=== PATIENT | male | born 1970 | race Caucasian/White ===

== ENCOUNTER 2016-10-31 21:05 | Inpatient (IN) | payer OTHER ==
[~2016-10-31] VITALS: Ht 193 cm; Wt 111.1 kg
--- NOTE | 2016-10-31 21:20 | NUR ---
TRIAGE; PT TO ED FOR CHEST TIGHTNESS. STATES HE FELT IT WHEN HE WAS PLAYING THE DRUMS EARLIER. STATES PAIN IS ACROSS HIS CHEST. DENIES ANY PAIN WITH DEEP INSPIRATION OR ANY PALPATION. PT STATES HE DOES HAVE A HX OF ANXIETY, BUT DOES NOT FEEL THE SAME.
--- NOTE | 2016-10-31 21:33 | NUR ---
RECIEVED TO ROOM 7. PT ATTACHED TO MONITOR AND IS IN SINUS RHYTHM WITH RATE 95. PLACED ON 2 LITERS NC O2 A PRECAUTION. PT DENIES ANY CP OR SOB AT PRESENT FOR IS FEELING ANXIOUS ABOUT WHAT MIGHT BE WRONG WITH HIM. IV IN PLACE. FAMILY AT BEDSIDE.
[2016-10-31] MEDS ORDERED: SERTRALINE HCL100 MG PO (21:39)
[2016-10-31] MEDS ORDERED: METFORMIN HCL500 M3 PO (21:39)
[2016-10-31] MEDS ORDERED: ALPRAZOLAM0.5 M4 (21:40)
[2016-10-31 21:44] LABS: ABSOLUTE BASOPHIL COUNT 0.1 /CUMM (0.0-0.2); ABSOLUTE EOSINOPHIL COUNT 0.2 /CUMM (0.0-0.7); ABSOLUTE GRANULOCYTE CT 9.7 /CUMM (1.4-6.5); ABSOLUTE MONOCYTE COUNT 0.9 /CUMM (0.10-0.60); EOSINOPHIL % 1.6 % (0-5); GRANULOCYTE % 69.4 % (42.2-75.2); HEMATOCRIT 49.4 % (42-52); MEAN CORPUSCULAR HGB 31.3 PG (27.0-31.0); MEAN CORPUSCULAR HGB CONC 33.8 G/DL (33.0-37.0); MEAN CORPUSCULAR VOLUME 92.7 FL (80.0-94.0); MEAN PLATELET VOLUME 8.7 FL (7.4-10.4); PLATELET COUNT 188 /CUMM (130-400); RBC DISTRIBUTION WIDTH 12.7 % (11.5-14.5); RED BLOOD CELL CT 5.33 /CUMM (4.70-6.10)
--- NOTE | 2016-10-31 21:48 | NUR ---
DR BOLAÑOS AND STUDENT AT BEDSIDE
--- NOTE | 2016-10-31 21:55 | NUR ---
XRAY NOTIFIED PT IS READY FOR PORTABLE XRAY, STUDENT EVAL IS COMPLETE
--- NOTE | 2016-10-31 21:57 | NUR ---
DR BOLAÑOS AT BEDSIDE
--- NOTE | 2016-10-31 22:02 | NUR ---
PCXR AT BEDSIDE
--- NOTE | 2016-10-31 22:09 | ED CARDIAC/CP/PALPITATIONS ---
History of Present Illness General Chief Complaint: Chest Pain Stated Complaint: CHEST PAIN Source: patient, friend, Epic Exam Limitations: no limitations Vital Signs & Intake/Output Vital Signs & Intake/Output Vital Signs Date Time Temp Pulse Resp B/P Pulse O2 O2 Flow FiO2 Ox Delivery Rate 11/01 0628 88 20 158/90 10/31 2343 96.0 80 16 140/70 99 Nasal 2.0L Cannula 10/31 2136 99 Nasal 2.0L Cannula 10/31 2132 172/96 10/31 2132 178/103 10/31 2121 96.9 88 18 99 Room Air Allergies Coded Allergies: No Known Allergies (10/31/16) Reconcile Medications Alprazolam 0.5 MG TABLET ANXIETY (Reported) Heparin Sodium,Porcine/D5w (Heparin-D5w 25,000 Unit/250 Ml) 25,000 UNIT/250 ML ( 100 UNIT/ML) IV.SOLN 25,000 UNITS IV ONCE ANTI-COAGULATION Metformin HCl 500 MG TABLET 1 TAB PO BID DIABETES (Reported) Sertraline HCl 100 MG TABLET 1 TAB PO DAILY ANXIETY (Reported) Triage Note: TRIAGE; PT TO ED FOR CHEST TIGHTNESS. STATES HE FELT IT WHEN HE WAS PLAYING THE [employer] EARLIER. STATES PAIN IS ACROSS HIS CHEST. DENIES ANY PAIN WITH DEEP INSPIRATION OR ANY PALPATION. PT STATES HE DOES HAVE A HX OF ANXIETY, BUT DOES NOT FEEL THE SAME. Triage Nurses Notes Reviewed? 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 3 hours prior to admission while drumming patient reports developing central chest pain described as mild to moderate aching constant nonradiating. He denies fever chills nausea vomiting diarrhea abdominal pain shortness breath headache dysuria rash bleeding. Past History Travel History Traveled to [place] past 21 day No Medical History Any Pertinent Medical History? see below for history Psychiatric: anxiety, depression Endocrine: diabetes Surgical History Surgical History: non-contributory Psychosocial History What is your primary language Trinidadian Tobacco Use: Never used Family History Hx Contributory? Yes Review of Systems Review of Systems Constitutional: Reports: no symptoms. EENTM: Reports: no symptoms. Respiratory: Reports: no symptoms. Cardiovascular: Reports: see HPI, chest pain. GI: Reports: no symptoms. Genitourinary: Reports: no symptoms. Musculoskeletal: Reports: no symptoms. Skin: Reports: no symptoms. Neurological/Psychological: Reports: no symptoms. Hematologic/Endocrine: Reports: no symptoms. Immunologic/Allergic: Reports: no symptoms. All Other Systems: Reviewed and Negative Physical Exam Physical Exam General Appearance: well developed/nourished, alert, awake, anxious, mild distress, obese Head: atraumatic, normal appearance Eyes: Bilateral: normal appearance, PERRL, EOMI. Ears, Nose, Throat: normal pharynx, normal ENT inspection Neck: normal inspection, supple, full range of motion, no midline tenderness Respiratory: normal breath sounds, chest non-tender, no respiratory distress, quiet respiration, lungs clear Cardiovascular: regular rate/rhythm, normal peripheral pulses, norml femoral pulses equa Peripheral Pulses: 4+ carotid (R), 4+ carotid (L) Gastrointestinal: normal bowel sounds, soft, non-tender, no organomegaly Back: normal inspection, normal range of motion, no vertebral tenderness Extremities: normal inspection, normal capillary refill, normal range of motion, no edema Neurologic/Psych: no motor/sensory deficits, awake, alert, oriented x 3, normal gait, normal mood/affect, vp production II-XII nml as tested Reflexes: 2+: bicep (R), bicep (L). Skin: intact, normal color, warm/dry Lymphatic: no anterior cervical eli Core Measures ACS in differential dx? Yes ASA ordered for poss ACS? Yes-ordered Severe Sepsis Present: No Septic Shock Present: No Progress Differential Diagnosis: AMI, hyperkalemia, hyperthyroid, myocarditis, pericarditis Plan of Care: Orders Procedure Date/time Status Nothing by Mouth 11/01 B Active PARTIAL THROMBOPLASTIN TIME 11/01 1345 Active EKG 11/01 1030 Active TROPONIN LEVEL 11/01 0800 Active EKG 11/01 0800 Active TROPONIN LEVEL 11/01 0600 Complete MAGNESIUM 11/01 0600 Complete GLYCOSYLATED HGB 11/01 0600 Active CBC WITHOUT DIFFERENTIAL 11/01 06 Complete BASIC ELECTROLYTES PLUS BUN&CR 11/01 06 Complete EKG 11/01 0600 Active Transfer patient to 11/01 0532 Active Teach/Educate 11/01 013 Active Nutritional Intake, Monitor 11/01 0135 Active Isolation 11/01 0135 Active Intake & Output 11/01 134 Active Patient Care Conference 11/015 Active Activity/Ambulation 11/01 0135 Active Pathway - chart 11/01 0034 Active Patient Data 11/01 0034 Active ECHOCARDIOGRAM 11/01 0034 Active Admit to inpatient 11/01 0000 Active House Staff 11/01 UNK Active Lab Add-on Test 11/01 UNK Active VTE Mechanical Prophylaxis 11/01 UNK Active Vital Signs 11/01 UNK Active Telemetry/[employer] Architect 11/01 UNK Active FingerStick- Glucose 11/01 UNK Active Patient Data 10/31 2357 Active Patient Data 10/31 2355 Active OXYGEN SETUP (GEN) 10/31 2208 Active Saline Lock 10/31 2208 Active Vital Signs 10/31 2208 Complete Activity/Ambulation 10/31 2208 Active Code Status 10/31 2208 Active Intake & Output 10/31 2136 Active Add-on Test (ER Only) 10/31 2134 Active THYROID STIMULATING HORMONE 10/31 2129 Complete FREE T4 10/31 2129 Complete WESTERGREN SED RATE 10/31 2129 Complete C-REACTIVE PROTEIN 10/31 2129 Complete TROPONIN LEVEL 10/31 2117 Complete MAGNESIUM 10/31 2117 Complete COMPREHENSIVE METABOLIC PANEL 10/31 2117 Complete CHOLESTEROL 10/31 2117 Complete CBC WITHOUT DIFFERENTIAL 10/31 2117 Complete EKG 10/31 2107 Active Current Medications Sig/Reynold Start time Last Medication Dose Stop Time Status Admin Sertraline HCl 100 MG DAILY 11/02 1000 AC (Zoloft) Aspirin 81 MG DAILY 11/01 1000 AC (Aspirin) Insulin Aspart 0 TIDAC 11/01 0800 CAN (NovoLOG) Omeprazole 40 MG DAILY AC 11/01 0700 AC (Prilosec) Heparin Sodium 5,000 UNIT Q8 11/01 0600 CAN (Porcine) Insulin Human Regular 0 Q6 11/01 0600 AC (Novolin R) Acetaminophen 650 MG Q6P PRN 11/01 0045 AC (Tylenol) Laboratory Tests 11/01/16 0430: Hemoglobin A1c Pending 11/01/16 0430: Anion Gap 8, Estimated GFR > 60, BUN/Creatinine Ratio 21.3, Magnesium 2.2, Troponin I 44.50 *H, CBC w Diff NO MAN DIFF REQ, RBC 4.96, MCV 91.9, MCH 30.8, RDW 13.0, MPV 8.7, Gran % 63.5, Lymphocytes % 25.9, Monocytes % 7.4, Eosinophils % 2.5, Basophils % 0.7, Absolute Granulocytes 8.9 H, Absolute Lymphocytes 3.6 H, Absolute Monocytes 1.0 H, Absolute Eosinophils 0.4, Absolute Basophils 0.1, PUBS MCHC 33.5 10/31/16 2130: Anion Gap 11, Estimated GFR > 60, BUN/Creatinine Ratio 17.5, Glucose 157 H, Calcium 9.7, Magnesium 1.9, Total Bilirubin 0.4, AST 25, ALT 39, Alkaline Phosphatase 102, Troponin I 0.01, C-Reactive Prot, Quant 1.9 H, Total Protein 7.3, Albumin 4.4, Globulin 2.9, Albumin/Globulin Ratio 1.5, Cholesterol 219 H, TSH 1.770, Free T4 1.19, CBC w Diff NO MAN DIFF REQ, RBC 5.33, MCV 92.7, MCH 31.3 H, RDW 12.7, MPV 8.7, Gran % 69.4, Lymphocytes % 21.6, Monocytes % 6.4, Eosinophils % 1.6, Basophils % 1.0, Absolute Granulocytes 9.7 H, Absolute Lymphocytes 3.0, Absolute Monocytes 0.9 H, Absolute Eosinophils 0.2, Absolute Basophils 0.1, PUBS MCHC 33.8, ESR Westergren 9 Diagnostic Imaging: Viewed by Me: Radiology Read. Discussed w/RAD: Radiology Read. CXR Impression: no acute abnormality, no infiltrates, normal size heart, normal mediastinum Initial ED EKG: normal axis, normal intervals, normal sinus rhythm, ST elevation (diffusely vs pr depression) Rhythm Strip: normal sinus rhythm Departure Departure Disposition: STILL A PATIENT Condition: Stable Clinical Impression Primary Impression: Pericarditis Qualifiers: Pericarditis type: unspecified type Chronicity: acute Qualified Code: I30.9 - Acute pericarditis, unspecified Secondary Impressions: Chest pain Qualifiers: Chest pain type: unspecified Qualified Code: R07.9 - Chest pain, unspecified Referrals: PATIENT HAS NO PRIMARY CARE DR Departure Forms: Customer Survey General Discharge Information Prescriptions: Current Visit Scripts Heparin Sodium,Porcine/D5w (Heparin-D5w 25,000 Unit/250 Ml) 25,000 UNITS IV ONCE #1 Admission Note Spoke With: CANDY BULL,KULDEEP Cunningham Documentation of Exam: Documentation of any treatments & extenuating circumstances including Concerns Regarding Discharge (functional status, medication knowledge or non-compliance, living conditions, etc.) that warrant an admission rather than observation: Cardiac monitoring serial lab exam serial EKG cardiology evaluation echocardiogram medication adjustment continuing care discharge planning Critical Care Note Critical Care Note Critical Care Time: non-applicable
--- NOTE | 2016-10-31 22:19 | NUR ---
MEDICATED ORDERED, AWARE WAITING ON RESULTS/PLAN, AWARE TO REMAIN NPO UNTIL DX/DISPO ESTABLISHED, NO COMPLAINTS AT THIS TIME. STILL WITH CHEST PAIN 01/15.
--- NOTE | 2016-10-31 22:32 | RADIOLOGY REPORT ---
EXAMINATION: XR PORTABLE CHEST CLINICAL INFORMATION: Chest pain. COMPARISON: None. TECHNIQUE: Portable AP view of the chest was obtained. FINDINGS: The lungs are hypoinflated but otherwise clear without focal airspace consolidation. No pleural effusions or pneumothoraces are identified. Cardiomediastinal contours are within normal limits. Soft tissues are unremarkable. No acute osseous abnormality is identified. IMPRESSION: No acute pulmonary process.
--- NOTE | 2016-10-31 23:44 | NUR ---
PT REPORTS ANXIETY IS BETTER, PAIN "TOOK THE EDGE OFF," DR BOLAÑOS AT BEDSIDE TO RE-EVAL, PT AWARE INITIAL TROP NEG.
--- NOTE | 2016-11-01 00:16 | History & Physical ---
MERRICK BULL,[facility] 11/01/16 0016: General Information and HPI MD Statement: I have seen and personally examined WILL PINK JR and documented this H&P. The patient is a 46 year old M who presented with a patient stated chief complaint of chest pain. Source of Information: patient, family, old records Exam Limitations: no limitations History of Present Illness: Mr Pink is a 46-year-old gentleman with past medical history of type 2 diabetes, anxiety and depression who presented to the emergency department on 10/31/2016 complaining of chest pain and chest discomfort. Patient states that approximately 5 days ago he had symptoms of a URI. He reports a cough and congestion although denies myalgia (he also reports that his partner had similar symptoms or a URI).This morning the patient woke up feeling generalized malaise and weakness. In the early evening after playing drums for approximately 1.5 hours he developed chest tightness. Patient reports that this was rated at a 5/10 in severity. Described as pressure like pain. Located sub sternally. Patient states that his pain was not related to inspiration and variation in position did not make the pain better or worse. Pain did not radiate to his upper extremities. The patient previously had a similar episode of chest discomfort approximately 10 days ago after using a snowblower following the heavy snowstorm. He endorses that this pain subsequently resovled. Patient states that failure to have a resolution to his symptoms prompted him to come to the emergency department. The patient did not get a flu shot this year. Allergies/Medications Allergies: Coded Allergies: No Known Allergies (10/31/16) Compliance With Home Meds: UNKNOWN Past History Travel History Traveled to [place] past 21 day No Medical History Psychiatric: anxiety, depression Endocrine: diabetes Surgical History Surgical History: none Past Family/Social History Family History Relations & Conditions if any MOTHER, ; Cause: Breast cancer. FATHER (CAD. [place] mid 40'sDM). Psychosocial History Where do you live? Home Services at Home: None Primary Language: Panamanian Smoking Status: Current Some Day Smoker ETOH Use: occasional use Illicit Drug Use: denies illicit drug use Functional Ability ADLs Independent: dressing, eating, toileting, bathing. Ambulation: independent IADLs Independent: shopping, housework, finances, food prep, telephone, transportation , medication admin. Employment History Employment Employed Review of Systems Review of Systems Cardiovascular: Reports: chest pain. Denies: edema, orthopena, palpitations, peripheral edema. Respiratory: Reports: cough. Denies: see HPI, hemoptysis, orthopnea, short of breath, sputum production, stridor. GI: Denies: abdominal pain, bloating, constipation, diarrhea, distention. Genitourinary: Denies: discharge, dysuria, frequency, hematuria, hesitation. Musculoskeletal: Denies: back pain, gout, joint pain, joint swelling. Skin: Denies: cysts, change in skin color, change in hair/nails, dryness. Neurological/Psychological: Denies: anxiety, ataxia, cognitive dysfunction, confusion, depressed. Hematologic/Endocrine: Denies: bruising. Exam & Diagnostic Data Last 24 Hrs of Vital Signs/I&O Vital Signs Date Time Temp Pulse Resp B/P Pulse O2 O2 Flow FiO2 Ox Delivery Rate 10/31 2342 96.0 80 16 140/70 99 Nasal 2.0L Cannula 10/31 2136 99 Nasal 2.0L Cannula 10/31 2132 172/96 10/31 2132 178/103 10/31 2121 96.9 88 18 99 Room Air Physical Exam General Appearance Alert, Oriented X3, Cooperative HEENT Mucous Membr. moist/pink Cardiovascular Normal S1, Normal S2, No Murmurs Lungs Clear to Auscultation Abdomen Normal Bowel Sounds, Soft, No Tenderness Neurological Normal Speech, Normal Tone, Sensation Intact Extremities No Edema Vascular Normal Pulses Last 24 Hrs of Labs/Ivan: Laboratory Tests 10/31/162129: Anion Gap 11, Estimated GFR > 60, BUN/Creatinine Ratio 17.5, Glucose 157 H, Calcium 9.7, Magnesium 1.9, Total Bilirubin 0.4, AST 25, ALT 39, Alkaline Phosphatase 102, Troponin I 0.01, C-Reactive Prot, Quant 1.9 H, Total Protein 7.3, Albumin 4.4, Globulin 2.9, Albumin/Globulin Ratio 1.5, Cholesterol 219 H, CBC w Diff NO MAN DIFF REQ, RBC 5.33, MCV 92.7, MCH 31.3 H, RDW 12.7, MPV 8.7, Gran % 69.4, Lymphocytes % 21.6, Monocytes % 6.4, Eosinophils % 1.6, Basophils % 1.0, Absolute Granulocytes 9.7 H, Absolute Lymphocytes 3.0, Absolute Monocytes 0.9 H, Absolute Eosinophils 0.2, Absolute Basophils 0.1, PUBS MCHC 33.8, ESR Westergren 9 Diagnostic Data EKG Results Rate 89. ST Elevation II, III, aVF CXR Results IMPRESSION: No acute pulmonary process. DICTATED BY: SARAH BELLO MD Assessment/Plan Assessment: This is a 46-year-old gentleman with no cardiac history who presented to the emergency department complaining of chest discomfort. #Chest pain Likely related to pericarditis due to recent URI. Coxsackie versus adenovirus versus influenza Admit patient to telemetry for closer monitoring. Trend troponins and EKG every 6 hours. Initial troponin done at the ED: 0.01 Echo in a.m. Cardiology consult with Dr. Haley in a.m. If echocardiogram is inconclusive consider an MRI looking for pericardial thickening and inflammation. For symptomatic relief Ibuprofen 800 mg. #History of diabetes. Begin the patient on sliding scale 3 times a day at bedtime. Hemoglobin A1c for long-term glycemic control. Maintain blood sugars below 150. If sugars remain uncontrollable consider endocrinology consult. #History of anxiety. Continue alprazolam. #History of depression Continue sertraline. #Diet Consistent carbohydrate diet #Code Full code #DVT prophylaxis ALPS As Ranked By This Provider Problem List: 1. Anxiety 2. Diabetes 3. Depression 4. Pericarditis Qualifiers Pericarditis type: unspecified type Chronicity: acute Qualified Code: I30.9 - Acute pericarditis, unspecified Core Measures/Miscellaneous Acute Coronary Syndrome ACS Diagnosis: No Cerebrovascular Accident CVA/TIA Diagnosis: No Congestive Heart Failure CHF Diagnosis: No Venous Thromboembolism VTE Risk Factors: Age > 40 VTE Prophylaxis Ordered Inpt: Mechanical (ALPS[facility]TEDS) [facility] d/t: No contraindications No VTE Pharm Prophylaxis d/t: No contraindications VTE Diagnosis: No VTE Type: NONE VTE Confirmed by (Test): NONE Severe Sepsis Severe Sepsis Present: No Septic Shock Septic Shock Present: No Miscellaneous Documentation Primary Care Physician: ROSAURA DE LA CRUZ MD Patient sees these Specialists NA Level of Patient Care: Telemetry GARRICK SOTO MD 11/01/16 0028: Review of Systems Review of Systems Constitutional: Reports: see HPI. Exam & Diagnostic Data Last 24 Hrs of Vital Signs/I&O Vital Signs Date Time Temp Pulse Resp B/P Pulse O2 O2 Flow FiO2 Ox Delivery Rate 10/31 2342 96.0 80 16 140/70 99 Nasal 2.0L Cannula 10/31 2136 99 Nasal 2.0L Cannula 10/31 2132 172/96 10/31 2132 178/103 10/31 2121 96.9 88 18 99 Room Air Intake & Output 11/01 0800 11/01 0000 10/31 1600 Intake Total Output Total Balance Patient 245 lb Weight Core Measures/Miscellaneous Miscellaneous Documentation Attending Case Discussed With: CANDY BULL,KULDEEP Cunningham Resident Review Statement Resident Statement: examined this patient, discussed with internet marketing consultant Other Findings: This is a 46-year-old gentleman with a past history only significant for one pack per day cigarette use, anxiety, depression, diabetes presents to the emergency room with a chief complaint of chest pain since this evening. Patient states that last week he was using a snowblower and experienced some left chest wall pain which was thought to be musculoskeletal with self alleviated. Subsequently he developed viral URI-like symptoms for the last 4-5 days. Today he played the drums for about an hour after he stopped playing the drums he noticed pain over the sternum which was pressure-like. Not related to inspiration or expiration, non-positional. He presented to the emergency room for same. While in the ER he received a full aspirin, morphine and Toradol with modest alleviation of his symptoms. At present is resting comfortably in his hospital bed without any complaints. Past medical history- anxiety, depression, diabetes Family history- mother of breast cancer, father is alive and has an extensive cardiac history recurrent myocardial infarctions Social history- current everyday one pack per day smoker, social alcohol use, no illicit drug use, is a touch up painter hand by trade Physical exam Vital signs are stable Lung exam is clear to auscultation bilaterally Cardiovascular exam reveals normal rate and rhythm, normal S1 and S2, no murmurs , no friction rub, chest pain not reproducible when palpated over chest wall/ sternum Family exam reveals normal bowel sounds, no tenderness or organomegaly Neuro exam is benign Extremity exam is benign EKG- rate 89, WA 136, QRS 90, QTC 428; sinus rhythm, ST elevations in leads 2, 3 , aVF, V4 V5 and V6; WA segment depressions in the same leads noted Chest x-ray shows no acute pulmonary process His BEP is benign, CBC reveals a white count of 14,000 without a left shift; troponin is negative, CRP is 1.9, ESR is pending Assessment- 1. Acute pericarditis, likely secondary to viral URI 2. Musculoskeletal chest wall pain likely secondary to acute pericarditis 3. History of depression 4. History of anxiety 5. History of diabetes mellitus 6. Nicotine dependence Plan- Telemetry admission Vitals per protocol Trend troponin and EKG Ibuprofen 800 every 8 protonix, 40 twice a day Echocardiogram Cardiology consultation in the morning Accu-Cheks, diabetic diet, low-dose insulin sliding scale Continue all other home meds No nicotine patch while in the hospital, given the fact that he had some chest discomfort Pain pathway DVT prophylaxis with subcutaneous heparin Full code CANDY BULL,KULDEEP Cunningham 11/01/16 0743: General Information and HPI Allergies/Medications Home Med list Alprazolam 0.5 MG TABLET ANXIETY (Reported) Aspirin (Aspirin*) 81 MG TAB.CHEW 81 MG PO DAILY heart health Atorvastatin Calcium 40 MG TABLET 1 TAB PO DAILY HLD Heparin Sodium,Porcine/D5w (Heparin-D5w 25,000 Unit/250 Ml) 25,000 UNIT/250 ML ( 100 UNIT/ML) IV.SOLN 25,000 UNITS IV ONCE ANTI-COAGULATION Metformin HCl 500 MG TABLET 1 TAB PO BID DIABETES (Reported) Metoprolol Tartrate 25 MG TABLET 1 TAB PO BID htn Sertraline HCl 100 MG TABLET 1 TAB PO DAILY ANXIETY (Reported) Attending MD Review Statement Attending Statement Attending MD Statement: examined this patient, discuss w/resident/PA/REAL ESTATE VALUER, agreed w/resident/PA/REAL ESTATE VALUER, discussed with family, reviewed EMR data (avail), discussed with nursing, discussed with case mgmt, reviewed images, amended to note Attending Assessment/Plan: Mr. Will Pink is a 46-year-old male with history of diabetes mellitus, long-standing tobacco use, anxiety, and positive family history for coronary artery disease (father experienced a myocardial infarction in his late 40s, early 50s) and recent upper respiratory infection symptoms who presented to the ED with complaints of substernal chest "discomfort" of 5-10 intensity, without radiation, worsening or improvement with change in position and/or respiration, or associated symptoms, and some mild diaphoresis that began while he was playing drums at approximately 7:30 p.m. last evening. When his symptoms persisted he drove himself to the ED where he received oxygen, full dose aspirin, Toradol, and morphine sulfate and felt improved. An ECG was performed that was reported to reveal diffuse ST segment elevation with WA segment depression. Initial blood work also revealed an elevated WBC count and normal troponin I. When I was contacted by the ED physician (Aaron Jimenez M.D.) the working diagnosis was pericarditis given his recent URI, ECG changes, elevated WBC count , normal troponin, discomfort resolution with Tordal, etc. Of note is the fact that Mr. Pink was asked discomfort free in the night and remains remains chest discomfort free. PMH: Diabetes mellitus, long-standing tobacco use, anxiety disorder. FH/SH: Father had a myocardial infarction in his late 40s, mother was diabetic, had breast CA, and was a victim of SCD in her late 50s-early 60s. The patient smokes one and a half packs of tobacco a day for 25 years. Social EtOH. ROS: A 14 point system review was obtained and was noncontributory, other than as above. PE: Well-developed, overweight middle-aged male in no acute distress with nasal oxygen in place. Vital signs: See above. HEENT: Normocephalic, atraumatic, EOMI, moist mucous membranes. Neck: No JVD, no bruits. Lungs: Clear to auscultation bilaterally. Heart: S1, S2 with no murmur, gallop, or rub appreciated. PMI fifth ICS at MCL. Abdomen: Soft, nontender, positive bowel sounds. Extremities: No edema. Peripheral pulses: Symmetrical, intact. Studies: ECG (11/01/2016 at 8:11 a.m.) sinus rhythm, borderline inferolateral Q waves, nonspecific ST-T wave abnormalities. CXR (10/31/2016) no acute cardiopulmonary process. Troponin I: Set # 1= 0.01 ng/ml Set # 2= 44.50 ng/ml Impression: Acute coronary syndrome vs. myopericardial inflammation in this 46- year-old male with a history of obesity, diabetes mellitus, long- standing tobacco use, family history for coronary artery disease, etc. Recommendations: * ICU admission, follow-up troponins, follow-up electrocardiogram. * IV anticoagulation, antiplatelets (aspirin, clopidogrel 600 mg total load), statin, THANH inhibitor, beta mariposa, etc. * Continue nothing by mouth in anticipation of cardiac catheterization. Case discussed with our interventionalist (Kody Franks M.D., PhD) and the plan will be for transfer to [facility] with him as accepting physician for cardiac catheterization and intervention as needed. * Schedule for echocardiogram to assess left ventricular systolic/diastolic function, right ventricular function, estimated PA pressure, etc. * Prophylaxis for deep venous thrombosis being addressed by IV anticoagulation for his ACS. Further recommendations will follow.
--- NOTE | 2016-11-01 00:21 | NUR ---
[facility]OP[facility] STAFF HERE TO EVAL PT TO BE ADMITTED TO TELE
--- NOTE | 2016-11-01 00:40 | NUR ---
EATING BOXED LUNCH DENIES ANY PAIN AT THIS TIME.
--- NOTE | 2016-11-01 01:04 | NUR ---
REPORT CALLED TO MANJINDER EMANUEL
--- NOTE | 2016-11-01 02:26 | NUR ---
AT 0211 PATIENT HAD A 4 BEAT RUN V-TACH. PATIENT DENIES CP, RESTING COMFORTABLY BP 130/[address] SIN NOTIFIED. EKG AND TROPONIN DUE TO BE DRAWN AT 0600. NO FURTHER INTERVENTIONS AT THIS TIME. WILL CONTINUE TO MONITOR.
--- NOTE | 2016-11-01 02:27 | NUR ---
AT 0220 PATIENT HAD 3 BEAT RUN OF V-TACH. STRIP PLACED IN CHART. DR. SIN NOTIFIED. NO INTERVENTIONS AT THIS TIME. WILL CONTINUE TO MONITOR.
[2016-11-01 04:58] LABS: ABSOLUTE BASOPHIL COUNT 0.1 /CUMM (0.0-0.2); ABSOLUTE EOSINOPHIL COUNT 0.4 /CUMM (0.0-0.7); ABSOLUTE GRANULOCYTE CT 8.9 /CUMM (1.4-6.5); ABSOLUTE LYMPH COUNT 3.6 /CUMM (1.2-3.4); BASOPHIL % 0.7 % (0.0-2.0); EOSINOPHIL % 2.5 % (0-5); GRANULOCYTE % 63.5 % (42.2-75.2); HEMATOCRIT 45.6 % (42-52); MEAN CORPUSCULAR HGB 30.8 PG (27.0-31.0); MEAN CORPUSCULAR HGB CONC 33.5 G/DL (33.0-37.0); MEAN CORPUSCULAR VOLUME 91.9 FL (80.0-94.0); MEAN PLATELET VOLUME 8.7 FL (7.4-10.4); PLATELET COUNT 181 /CUMM (130-400); RED BLOOD CELL CT 4.96 /CUMM (4.70-6.10)
[2016-11-01] MEDS ORDERED: HEPARIN-D525000 UNIT IV (06:04)
--- NOTE | 2016-11-01 06:08 | Event Note ---
Event Note Event Note: After clinical encounter at the ED, patient was admitted to telemetry. The patient continued to beats of V. tach. 2:18 AM had a 3 beat 2:24 AM had a 3 beat. (added a TSH and Free t4) 3:58 AM had a 7 beat. At approximately 4:15 AM resident and myself went to the patient's bedside. He was resting comfortably in bed. A stat EKG was ordered. Morning labs were requested to be drawn earlier instead of 6 AM. Troponin originally ordered for 6 AM was drawn and further showed evidence of increased troponin to 44.50. Water Proofer, Dr. Haley was called. Patient was started on IV heparin as per ACS protocol. 5000 units bolus of heparin was also given. High-dose statin 80 mg ordered. Aspirin 81 mg ordered. Metoprolol 2.5 mg IV ordered. Patient made NPO and switched over to sliding scale insulin. Patient's girlfriend has been informed. Patient transferred to ICU.
--- NOTE | 2016-11-01 06:11 | Discharge Summary ---
Visit Information Visit Dates Admission Date: 11/01/16 Discharge Date: 11/01/16 Hospital Course Course Attending Physician: CANDY BULL,KULDEEP Cunningham Primary Care Physician: ROSAURA DE LA CRUZ MD [facility] Course: Problem list: -Chest pain Acute coronary syndrome vs. myopericardial inflammation. -Nlb-[id number] diabetes mellitus. Hospital course: This is 46-year-old gentleman with a past history of anxiety, depression and diabetes mellitus admitted last night for chest discomfort he experienced while playing the drums. he was given aspirin, Toradol and morphine by the ER physician after which his symptoms had completely alleviated. His chest discomfort was present more so over the sternum, his first troponin was negative and his EKG showed diffuse ST elevations and MD depressions suggestive of pericarditis. He was admitted to the cardiac telemetry floor for suspected pericarditis and was being treated accordingly. His second troponin did come back positive at 44.15 so the patient was transferred to the ICU and was started on heparin drip, he received statin and IV beta mariposa with THANH-I, the patient remained free from any chest pain or discomfort. Patient had episodes of V. tach. Patient received a particular 600 mg total load as 300 mg dose in 2 doses the second one be given before the transfer. after evaluation and discussion with the staff editor, patient will need to be transferred for cardiac catheterization. Patient had strong family history of his father and coronary artery disease before age of 50, also the patient current smoker of one pack per day. Imaging: EXAMINATION: XR PORTABLE CHEST FINDINGS: The lungs are hypoinflated but otherwise clear without focal airspace consolidation. No pleural effusions or pneumothoraces are identified. Cardiomediastinal contours are within normal limits. Soft tissues are unremarkable. No acute osseous abnormality is identified. IMPRESSION: No acute pulmonary process. Allergies: Coded Allergies: No Known Allergies (10/31/16) Disposition Summary Disposition Principal Diagnosis: Acute coronary syndrome vs. myopericardial inflammation Additional Diagnosis: 1. Anxiety 2. Depression 3. DM Discharge Disposition: other general hospital Discharge Instructions General Discharge Information Code Status: Full Code Patient's Diet: NPO Patient's Activity: TOLERATED Follow-Up Instructions/Appts: D/C TO OTHER HOSPITAL FOR CATH Medications at Discharge Discharge Medications: Continue taking these medications: Sertraline HCl (Sertraline HCl) 100 MG TABLET 1 Tablet ORAL DAILY Qty = 30 Metformin HCl (Metformin HCl) 500 MG TABLET 1 Tablet ORAL TWICE DAILY Qty = 60 Alprazolam (Alprazolam) 0.5 MG TABLET Qty = 30 Start taking the following new medications: Aspirin (Aspirin*) 81 MG TAB.CHEW 81 Milligram ORAL DAILY Days = 28 No Refills Heparin Sodium,Porcine/D5w (Heparin-D5w 25,000 Unit/250 Ml) 25,000 UNIT/250 ML ( 100 UNIT/ML) IV.SOLN 25,000 Units INTRAVEN GIVE ONCE Qty = 1 No Refills Metoprolol Tartrate (Metoprolol Tartrate) 25 MG TABLET 1 Tablet ORAL TWICE DAILY Days = 14 No Refills Atorvastatin Calcium (Atorvastatin Calcium) 40 MG TABLET 1 Tablet ORAL DAILY Qty = 30 No Refills Copies To: DOROTHY BULL,ROSAURA Gardiner
[2016-11-01 06:30] VITALS: BP 168/92
[2016-11-01] MEDS ORDERED: ASPIRIN81 M4 PO (07:43)
[2016-11-01] MEDS ORDERED: NITROGLYCERIN0.4 M1 SL (07:43)
[2016-11-01] MEDS ORDERED: METOPROLOL TART25 M1 PO (07:45)
--- NOTE | 2016-11-01 07:47 | Patient Discharge Instructions ---
Discharge Instructions General Discharge Information You were seen/treated for: CHEST PAIN Special Instructions: Please follow-up with your primary care doctor after discharge. Please follow-up with her navy diver after discharge. Diet Continue normal diet: No Recommended Diet: Diabetic, Heart Healthy Activity Full Activity/No Limits: No Activity Self Limited: Yes Acute Coronary Syndrome Inclusion Criteria At DC or during hospital stay patient has or had the following: ACS DIAGNOSIS No Discharge Core Measures Meds if any: Prescribed or Continued at Discharge THANH/ARB if EF <40% No Aspirin Yes Beta-Cinthia Yes Statin Yes Meds if any: NOT Prescribed or Continued at Discharge Congestive Heart Failure Inclusion Criteria At DC or during hospital stay patient has or had the following: CHF DIAGNOSIS No Discharge Core Measures Meds if any: Prescribed or Continued at Discharge Meds if any: NOT Prescribed or Continued at Discharge Cerebrovascular accident Inclusion Criteria At DC or during hospital stay patient has or had the following: CVA/TIA Diagnosis No Discharge Core Measures Meds if any: Prescribed or Continued at Discharge Meds if any: NOT Prescribed or Continued at Discharge Venous thromboembolism Inclusion Criteria VTE Diagnosis No VTE Type NONE VTE Confirmed by (Test) NONE Discharge Core Measures - Per Current guidelines, there needs to be overlap - treatment for the first 5 days of Warfarin therapy. - If discharged on Warfarin prior to 5 days of - overlap therapy, the patient will need to be - assessed for post discharge needs including - *Post discharge parental anticoagulation - *Warfarin and/or parental anticoagulation education - *Follow up date to check INR post discharge At least 5 days overlap therapy as Inpatient No Meds if any: Prescribed or Continued at Discharge Note: Overlap Therapy is Warfarin and Anticoagulant Meds if any: NOT Prescribed or Continued at Discharge
[2016-11-01] MEDS ORDERED: ATORVASTATIN CA40 M1 PO (07:48)
--- NOTE | 2016-11-01 07:53 | NUR ---
AT 0415 PATIENT HAD 7 BEAT RUN OF V-TACH. DR. SIN WAS NOTIFIED. BP 130/80 PATIENT DENIES CP. HEART RATE 74 NSR. EKG AND TROPONIN DRAWN ORDERED.
--- NOTE | 2016-11-01 07:54 | NUR ---
AT [address]30 [address]IN RE[address]ED AT 44.5. DR SOTO NOTIFIED AND HEPARIN DRIP STARTED ORDERED AND PATIENT TRANSFERED TO CRITICAL CARE.
[2016-11-01 08:00] VITALS: BP 168/70
--- NOTE | 2016-11-01 08:19 | NUR ---
0600 ALERT, ORIENTED X3 PATIENT RECEIVED FROM 1N VIA BED, SKIN PINK, WARM AND DRY, MANAGER OF PLANNING SINUS WITHOUT ECTOPY, HEART RATE 85 TO 90/MIN, 2L/MIN O2 VIA NC- O2 SAT AT 99%, BREATHE SOUNDS CLEAR BILATERALLY, ABDOMEN SOFT, +BS, IV HEPARIN DRIP INFUSING AT 9 UNITS/KG/HR (20 ML/HR)- PTT DUE AT 1345 TODAY, PATIENT VERY ANXIOUS OVER TRANSFER INTO [facility]- 1000 XANAX DOSE GIVEN NOW PER DR SIN, PATIENT ORIENTED TO [facility] SURROUNDINGS/ROUTINE, NPO STATUS EXPLAINED, PATIENT ENCOURAGED TO VERBALIZE ANY QUESTIONS/CONCERNS 0630 2.5 MG LOPRESSOR GIVEN SLOWLY IV- HEART RATE MID-70'S/MIN AND SBP 150/ AFTER MED, PATIENT HAS EXPRESSED CONFUSION REGARDING [facility] TRANSFER, CANNOT RECALL WHAT HE WAS TOLD BY MD'S, ALSO HAS EXPRESSED MIDSTERNAL DISCOMFORT- "MUCH LESS THAN EARLIER," NONRADIATING, NOT INCREASED WITH RESPIRATION OR MOVEMENT- MATTI FERNÁNDEZ AND MERRICK IN AT BEDSIDE AND HAVE EXPLAINED AGAIN TO BOTH PATIENT AND GIRLFRIEND AND ENCOURAGED QUESTIONS 0700 PATIENT RESTING QUIETLY, AWAITING DR GUPTA'S VISIT
[2016-11-01 11:45] VITALS: BP 170/90
--- NOTE | 2016-11-01 12:22 | ECHOCARDIOGRAM REPORT ---
WILL PINK Age: 46 : 1970 Gender: M Exam Date: 11/01/2016 08:56 Exam Location: [facility] Ht (in): 73 Wt (lb): 245 BSA: 2.42 BP: 158 / 90 Ordering Physician: RADHA SOTO M Referring Physician: RADHA SOTO MD Technologist: Sarwat Urena [facility] Room Number: 109 Indications: PERICARDIAL CONDITIONS Rhythm: Sinus Technical Quality: Fair FINDINGS Left Ventricle Normal size left ventricle. Borderline concentric left ventricular hypertrophy. No obvious regional wall motion abnormalities. Borderline normal left ventricular ejection fraction estimated at 50-55%. Normal left ventricular diastolic filling pattern for age. Right Ventricle Normal right ventricular size and function. Right Atrium Normal right atrial size. Left Atrium Normal left atrial size. Mitral Valve Mitral valve mildly thickened. No mitral regurgitation. Aortic Valve Aortic valve not well visualized, grossly normal. No aortic valve stenosis or regurgitation. Tricuspid Valve Structurally normal tricuspid valve. No tricuspid regurgitation. Unable to estimate the right ventricular systolic pressure. Pulmonic Valve Pulmonic valve not well visualized. No pulmonic regurgitation. Pericardium No pericardial effusion. Great Vessels Normal size aortic root. CONCLUSIONS Normal size left ventricle. Borderline concentric left ventricular hypertrophy. No obvious regional wall motion abnormalities. Borderline normal left ventricular ejection fraction estimated at 50-55%. Normal left ventricular diastolic filling pattern for age. Normal right ventricular size and function. Normal atial size. No evidence of valvular stenosis or regurgitation. Damián Haley M.D. (Electronically Signed) Final Date: 01 November 2016 12:21 MEASUREMENTS (Male / Female) Normal Values 2D ECHO LV Diastolic Diameter PLAX 4.8 cm 4.2 - 5.9 / 3.9 - 5.3 cm LV Systolic Diameter PLAX 3.3 cm 2.1 - 4.0 cm LV Fractional Shortening PLAX 31.3 % 25 - 46 % LV Ejection Fraction 2D Teich 59.0 % IVS Diastolic Thickness 1.1 cm LVPW Diastolic Thickness 1.0 cm LV Relative Wall Thickness 0.4 RV Internal Dim ED PLAX 2.7 cm 1.9 - 3.8 cm LVOT Diameter 2.6 cm Aortic Root Diameter 3.0 cm LA Systolic Diameter LX 3.0 cm 3.0 - 4.0 / 2.7 - 3.8 cm LA Volume 49.0 cm 18 - 58 / 22 - 52 cm Ascending Aorta Diameter 3.0 cm DOPPLER AV Peak Velocity 117.0 cm/s AV Peak Gradient 5.5 mmHg AV Mean Velocity 78.3 cm/s AV Mean Gradient 3.0 mmHg AV Velocity Time Integral 24.8 cm LVOT Peak Velocity 109.0 cm/s LVOT Peak Gradient 4.8 mmHg LVOT Mean Velocity 56.5 cm/s LVOT Mean Gradient 2.0 mmHg LVOT Velocity Time Integral 20.2 cm LVOT Stroke Volume 107.2 cm AV Area Cont Eq vti 4.3 cm AV Area Cont Eq pk 4.9 cm MV Peak Velocity 92.4 cm/s MV Peak Gradient 3.4 mmHg MV Mean Velocity 68.8 cm/s MV Mean Gradient 2.0 mmHg Mitral E Point Velocity 89.8 cm/s Mitral A Point Velocity 52.3 cm/s Mitral E to A Ratio 1.7 MV PHT Velocity 103.0 cm/s MV Deceleration [place] 170.0 cm/s MV Pressure Half Time 181.8 ms MV Area PHT 1.2 cm MV Deceleration Time 246.0 ms PV Peak Velocity 96.5 cm/s PV Peak Gradient 3.7 mmHg PV Mean Velocity 70.1 cm/s PV Mean Gradient 2.0 mmHg PV Velocity Time Integral 21.4 cm LV E' Lateral Velocity 9.1 cm/s Mitral E to LV E' Lateral Ratio 9.9 LV E' Septal Velocity 8.8 cm/s Mitral E to LV E' Septal Ratio 10.2
== END 2016-11-01 13:30 | disposition short-term general hospital (02) | DRG 198 ==
LOC: ENRESERVTM → ENRESERVDT → ERH 21:05 → CRI 11-01 → ERHI 11-01 → CANBEDREQ 11-01 00:23 → 1NO 11-01 01:13 → CRI 11-01 06:03
PROVIDERS: Emergency Medicine; Internal Medicine; ADMIT Internal Medicine Interventional Cardiology
DX: I24.9 Acute ischemic heart disease, unspecified (principal); I30.9 Acute pericarditis, unspecified; I47.2 Ventricular tachycardia; E11.9 Type 2 diabetes mellitus without complications; F41.9 Anxiety disorder, unspecified; F32.9 Major depressive disorder, single episode, unspecified; F17.210 Nicotine dependence, cigarettes, uncomplicated
CPT/HCPCS: CCU; 82436; 93005; 93010; 93306; 96374; 96375; J1644; J1885; J3490; J7060